=== PATIENT | female | born 1965 | race Caucasian/White ===

== ENCOUNTER 2020-03-30 19:51 | Inpatient (IN) | payer MEDICARE, MEDICAID ==
[~2020-03-30] VITALS: Ht 165.1 cm; Wt 113.4 kg
[2020-03-30 19:58] VITALS: BP 266/165
[2020-03-30 20:24] LABS: ABSOLUTE BASOPHILS 0.1 thou/uL (0.0-0.2); ABSOLUTE LYMPHOCYTES 1.3 thou/uL (0.8-5.3); ABSOLUTE MONOCYTES 0.5 thou/uL (0.0-1.2); ABSOLUTE NEUTROPHILS 6.9 thou/uL (1.6-8.1); BASOPHILS 0.7 %; EOSINOPHILS 0.3 %; HEMATOCRIT 43.9 % (37.0-47.0); HEMOGLOBIN 14.4 gm/dL (12.0-15.0); LYMPHOCYTES 15.2 %; MCH 27.1 pg (26.0-34.0); MCHC 32.9 g/dL (28.0-37.0); MCV 82.6 fL (80.0-100.0); MONOCYTES 5.6 %; MPV 7.2 fl. (7.2-11.1); NUCLEATED RBCS 0 /100WBC; PLATELET COUNT* 356 thou/uL (150-400); POLYS 78.2 %; RBC 5.31 mil/uL (4.20-5.00); RDW-CV 14.9 % (10.5-14.5); WBC 8.8 thou/uL (4.0-11.0)
[2020-03-30 20:35] LABS: CALCIUM 9.9 mg/dL (8.5-10.1); POTASSIUM 3.9 mmol/L (3.5-5.1)
[2020-03-30 20:38] LABS: APTT 22.2 Seconds (25.0-31.3); INR 1.1; PROTIME 11.5 Seconds (9.20-11.50)
[2020-03-30 20:46] LABS: MAGNESIUM 1.6 mg/dL (1.8-2.4); TOTAL BILIRUBIN 1.4 mg/dL (<0.1-1.0); TOTAL PROTEIN 7.9 g/dL (6.4-8.2)
[2020-03-30 23:46] VITALS: BP 166/80
[2020-03-31 03:36] VITALS: BP 145/80
[2020-03-31 07:30] VITALS: BP 144/78
[2020-03-31 09:39] VITALS: BP 152/88
[2020-03-31 10:34] VITALS: BP 177/97
--- NOTE | 2020-03-31 15:11 | EKG ---
[place] [address] ELECTROCARDIOGRAM REPORT Name: DORIS YAO Room: [address] ADM IN ..#: [id number] Admission: 03/30/20 Attend Phys: Javid Mascorro, Discharge: Date of : 67 Date of Service: 03/30/20 [facility] Report #: [id number] THIS REPORT FOR: //name// [facility] ED Test Date: 2020-03-30 Test Time: 20:04:27 Pat Name: DORIS YAO Department: Room: [facility] Gender: F [employer]: [place] : 1965 Requested By: Zachery Saeed Order Number: [id number] MD: Miah Ortiz Measurements Intervals [place] Rate: 76 P: 51 ME: 163 QRS: 7 QRSD: 84 T: 18 QT: 370 QTc: 417 Interpretive Statements Sinus rhythm Anterior infarct, old possible No previous ECG available for comparison Electronically Signed On 03-31-2020 15:11:47 PACKER by Miah Ortiz [email or web address] <ELECTRONICALLY SIGNED> By: Miah Ortiz MD, [facility] 03/31/20 1511 03 03 Miah Ortiz MD, FAC /EPI
[2020-03-31 15:44] VITALS: BP 179/99
[2020-03-31 20:00] VITALS: BP 167/99
[2020-04-01] VITALS (8 sets, daily range): BP systolic 131–171; BP diastolic 69–119
[2020-04-01] MEDS ORDERED: NORVASC5 MG PO (13:09)
[2020-04-01] MEDS ORDERED: PROZAC20 M1 PO (13:10)
[2020-04-02 04:00] VITALS: BP 170/105
[2020-04-02 04:42] LABS: CALCIUM 9.4 mg/dL (8.5-10.1); CREATININE 0.7 mg/dL (0.6-1.3); MAGNESIUM 2.3 mg/dL (1.8-2.4); PHOSPHORUS* 3.3 mg/dL (2.5-4.9)
[2020-04-02 07:30] VITALS: BP 188/105
[2020-04-02 11:30] VITALS: BP 194/105
[2020-04-02 16:00] VITALS: BP 178/112
[2020-04-02] MEDS ORDERED: NORVASC5 MG PO (16:40)
[2020-04-02] MEDS ORDERED: COZAAR100 MG PO (16:40)
[2020-04-02] MEDS ORDERED: WELLBUTRIN SR150 MG PO (16:40)
[2020-04-02] MEDS ORDERED: ZYPREXA5 MG PO (16:40)
[2020-04-02 20:00] VITALS: BP 178/109
[2020-04-03] VITALS: BP 134/78
[2020-04-03 04:30] VITALS: BP 128/76
[2020-04-03 08:00] VITALS: BP 178/103
[2020-04-03 12:09] VITALS: BP 178/103
[2020-04-03 12:24] VITALS: BP 168/96
== END 2020-04-03 13:06 | disposition home or self-care (01) | DRG 433 ==
LOC: M.ERS 19:51 → M.TBA-ER 21:11 → M.2W 03-31 10:30
PROVIDERS: Emergency Medicine Emergency Medical Services; ADMIT Internal Medicine; ATTEND Internal Medicine
DX: K70.10 Alcoholic hepatitis without ascites (principal); E51.2 Wernicke's encephalopathy; F10.230 Alcohol dependence with withdrawal, uncomplicated; K29.00 Acute gastritis without bleeding; Z20.828 Contact with and (suspected) exposure to other viral communicable diseases; E83.42 Hypomagnesemia; I10 Essential (primary) hypertension; F32.9 Major depressive disorder, single episode, unspecified; F41.9 Anxiety disorder, unspecified; Z88.6 Allergy status to analgesic agent; Z88.1 Allergy status to other antibiotic agents; Z88.8 Allergy status to other drugs, medicaments and biological substances; Z90.49 Acquired absence of other specified parts of digestive tract; Z23 Encounter for immunization